=== PATIENT | female | born 1975 | race Caucasian/White ===

== ENCOUNTER 2023-08-10 08:39 | Emergency (ER) | payer MEDICAID ==
[~2023-08-10] VITALS: Ht 172.7 cm; Wt 87.3 kg
[2023-08-10 09:01] VITALS: BP 145/58; PULSE 91; TEMP 98.6; O2SAT 97
[2023-08-10] MEDS ORDERED: AMOX-101 PO (10:01)
[2023-08-10] MEDS ORDERED: CHLO473M3 PO (10:01)
[2023-08-10] MEDS ORDERED: HYDROcodone/acetaminophen 5mg/325mg tablet PO ONE (10:05)
[2023-08-10 10:10] VITALS: RESP 17
--- NOTE | 2023-08-10 10:14 | NUR ---
PT DROVE HERSELF TO THE HOSPITAL. PER ANA PARIS RN MAY PROVIDE THE NORCO FOR PT TO TAKE ONCE SHE ARRIVES HOME. RN PROVIDED NORCO AND EDUCATED PT THAT SHE SHOULD NOT TAKE THE MEDICATION UNTIL SHE ARRIVES HOME AND TO NOT DRIVE FOR 8 HOURS AFTER TAKING THE MEDICATION AND PATIENT VERBALIZED UNDERSTANDING.
== END 2023-08-10 10:17 | disposition home or self-care (01) ==
LOC: ER 08:40
DX: K02.9 Dental caries, unspecified (principal); N18.2 Chronic kidney disease, stage 2 (mild); F17.200 Nicotine dependence, unspecified, uncomplicated; Z79.2 Long term (current) use of antibiotics; Z79.899 Other long term (current) drug therapy
CPT/HCPCS: 99283

== ENCOUNTER 2025-01-02 04:03 | Emergency (ER) | payer MEDICAID ==
[~2025-01-02] VITALS: Ht 177.8 cm; Wt 73.8 kg
[~2025-01-02 04:03] MED LIST: CHLO473M13 PO
[2025-01-02] MEDS ORDERED: AMOX500C2 PO (04:32)
[2025-01-02] MEDS: amoxicillin 250mg capsule PO ONE (04:44)
[2025-01-02] MEDS: dexamethasone sod phosphate 10mg/ml inj PO STA (04:45)
[2025-01-02] MEDS: ketorolac trometh 15mg/ml vial 15 MG/ML ML IM ONE (04:45)
[2025-01-02 04:50] VITALS: BP 137/74; PULSE 82; RESP 16; TEMP 98.6; O2SAT 97
== END 2025-01-02 04:51 | disposition home or self-care (01) ==
LOC: ER 04:03
DX: K08.89 Other specified disorders of teeth and supporting structures (principal); Z79.899 Other long term (current) drug therapy
CPT/HCPCS: 96372; 99283; J1100; J1885